=== PATIENT | female | born 1985 | race Caucasian/White ===

== ENCOUNTER → 2020-09-29 11:59 | Outpatient (BNVA) | payer OTHER, SELFPAY | PROVIDERS: Visit Provider Nurse Practitioner Family | DX: Z20.828 Contact with and (suspected) exposure to other viral communicable diseases (principal) | CPT/HCPCS: 87635 ==

== ENCOUNTER 2020-10-01 12:49 | Emergency (ER) | payer OTHER, SELFPAY ==
[2020-10-01 13:00] VITALS: BP 126/72; PULSE 117; RESP 18; TEMP 36.9; O2SAT 100; BMI 28.3
[2020-10-01 13:22] VITALS: O2SAT 100
--- NOTE | 2020-10-01 13:23 | W.ED.COVID ---
HPI - COVID General: Chief Complaint: COVID symptoms Stated Complaint: COVID + Time Seen by Provider: 10/01/20 12:58 Triage information: Has fever, cough or shortness of breath. Exposure to COVID + person last 14 days History of Present Illness: HPI Narrative: Patient is a 35-year-old female comes to the ED with Covid symptoms. Patient has had body aches, cough and shortness of breath started approximately 3 days ago. She she was Covid positive on September 29. She has been in self quarantine. She felt like her shortness of breath was getting worse today so she came to the ED to get checked out. Denies any fever, chills, nausea/vomiting, abdominal pain, chest pain, bladder or bowel symptoms. COVID 19 common symptoms: positive non-productive cough, dyspnea and body aches; negative fever(s), chills, productive cough, fatigue, headache(s), throat pain, nasal congestion, nausea, vomiting or diarrhea COVID 19 other sytmptoms: negative chest pain COVID Results: SARS-CoV-2 RNA (RT-PCR) Detected (NOT DETECTED) A 09/29/20 11:59 09/29/20 Review of Systems Const: Reports: body aches; Denies: fever(s), chills or fatigue Eyes: Denies: change in vision or eye discomfort ENMT: Denies: throat pain, odynophagia, nasal discharge or nasal congestion Card: Denies: chest pain, palpitations, edema, swelling of feet/ankles, dyspnea on exertion or orthopnea Resp: Reports: dyspnea and non-productive cough; Denies: productive cough GI: Denies: abdominal pain, nausea, vomiting, diarrhea, constipation or hematochezia : Denies: flank pain, dysuria or hematuria Musc: Denies: neck pain, back pain or extremity swelling Skin/Breast: Denies: rash or new lesions Neuro: Denies: headache(s), numbness in extremities or weakness in extremities Physical Exam Const: COMMON NORMALS: no acute distress, patient oriented x3 and alert GENERAL APPEARANCE: cooperative and comfortable HENMT: COMMON NORMALS: normocephalic HEAD & SCALP: normocephalic MOUTH: Normal oral and palatal mucosa present THROAT: posterior oropharynx normal and uvula midline Eye: COMMON NORMALS: Equal, round and reactive pupils present PUPIL: Yes Equal, round and reactive pupils present Neck/C-Spine: COMMON NORMALS: supple GENERAL: Yes normal visual inspection Resp: COMMON NORMALS: normal respiratory effort, No retractions, No use of accessory muscles and clear to auscultation bilaterally AUSCULTATION: clear to auscultation bilaterally Cardio: COMMON NORMALS: regular rate, regular rhythm, S1 normal heart sound present, S2 normal heart sound present, No gallops present (Cardio), No clicks present (Cardio), No murmurs present (Cardio) and Peripheral pulses 2+ throughout RATE: regular rate RHYTHM: regular rhythm HEART SOUNDS: S1 normal heart sound present and S2 normal heart sound present PERIPHERAL PULSES: Peripheral pulses 2+ throughout GI: COMMON NORMALS: Normal to inspection, nondistended, normoactive bowel sounds present, Soft to palpation, non-tender and no masses PALPATION: Yes Soft to palpation : COMMON NORMALS: Yes no CVA tenderness BLADDER/KIDNEY EXAM: Yes no CVA tenderness Back/Pelvis: COMMON NORMALS: no CVA tenderness Extremity: COMMON NORMALS: normal to inspection Neuro: COMMON NORMALS: patient oriented x3 and moves all extremities SENSORIUM/ORIENTATION: Yes alert Skin: GENERAL SKIN EXAM: dry skin Course Vital Signs: Vital signs: Vital Signs Temperature 98.4 F 10/01/20 13:00 Pulse Rate 78 10/01/20 15:53 Respiratory Rate 18 10/01/20 15:53 Blood Pressure 118/63 10/01/20 15:53 Pulse Oximetry 100 10/01/20 15:53 MDM - COVID MDM Narrative: Medical decision making narrative: Patient is a 35-year-old female who comes to the ED with Covid symptoms. Patient tested positive for COVID-19 on September 29. Denies any chest pain. Lungs are clear to auscultation bilaterally and patient appears in no acute respiratory distress. EKG showed sinus tachycardia with no ST segment elevation or depression seen, 107 bpm. Chest x-ray suggestive of some developing viral pneumonia and right lower lobe. Patient was sent home with a prescription for an albuterol inhaler, Z-Rojas and Medrol Dosepak. Return to ED precautions given. Patient understood and agreed with plan. Lab Data: Attestation: I reviewed the patient's lab results. Labs: Lab Results 10/01/20 10/01/20 10/01/20 Range/Units 13:41 13:41 13:41 WBC 9.5 (4.0-10.0) 10^3/ uL RBC 4.74 (4.1-5.3) 10^6/u L Hgb 13.2 (11.5-15.3) g/dL Hct 40.9 (37.0-47.0) % MCV 86.3 (81-99) fL MCH 27.8 L (28.0-34.0) pg MCHC 32.3 (30.0-36.0) g/dL RDW 13.5 (12.1-15.1) % Plt Count 208 (130-400) 10^3/c mm MPV 11.9 H (7.4-10.4) fL Neut % (Auto) 76.5 % Lymph % (Auto) 13.8 % Republic % (Auto) 7.6 % Eos % (Auto) 1.7 % Baso % (Auto) 0.2 % Neut # (Auto) 7.24 (1.8-7.7) 10^3/u L Lymph # (Auto) 1.3 (0.8-4.8) 10^3/u L Republic # (Auto) 0.7 (0.2-0.9) 10^3/u L Eos # (Auto) 0.2 (0.0-0.8) 10^3/u L Baso # (Auto) 0.0 (0.0-0.1) 10^3/u L Nucleated RBC % (a uto) 0 % Nucleated RBCs # 0.0 /100WBC Sodium 138 (136-145) mmol/L Potassium 3.6 (3.5-5.1) mmol/L Chloride 101 (98-107) mmol/L Carbon Dioxide 27 (22-29) mmol/L Anion Gap 13.6 (5-19) BUN 5 L (6-20) mg/dL Creatinine 0.6 (0.5-0.9) mg/dL GFR Calculation 112.5 (90-130) mL/min Glucose 148 H (65-115) mg/dL Calculated Osmolal ity 286 (285-295) mOsm/k g Calcium 9.3 (8.5-10.5) mg/dL Total Bilirubin 0.5 (0.15-1.2) mg/dL AST 20 (0-32) U/L ALT 12 (0-33) U/L Alkaline Phosphata se 50 (35-105) IU/L Total Protein 7.5 (6.6-8.7) g/dL Albumin 3.9 (3.5-5.2) g/dL Globulin 3.6 (1.3-4.6) g/dL HCG, Qual Negative (Negative) Imaging Data: CXR: Attestation: I personally reviewed and interpreted this imaging study as follows: My impression: Chest x-ray shows some groundglass appearance in right lower lung. Suggestive of viral pneumonia. EKG Data: EKG 1: Attestation: I personally reviewed and interpreted this EKG as follows: EKG interpretation date: 10/01/20 Interpretation: Patient sinus tachycardia, 107 bpm, no ST segment elevation or depression seen. COVID Results: SARS-CoV-2 RNA (RT-PCR) Detected (NOT DETECTED) A 09/29/20 11:59 09/29/20 Discharge Plan Discharge Patient Disposition: Home Clinical Impression: Pneumonia due to COVID-19 virus Condition: Stable Prescriptions: New azithromycin 250 mg tablet 250 mg PO DAILY 4 Days Qty: 4 RF: 0 albuterol sulfate 90 mcg/actuation HFA aerosol inhaler 2 inh inhalation Q6H PRN (Reason: shortness of breath or wheezing) Qty: 6.7 RF: 0 methylprednisolone 4 mg tablets,dose pack See Rx Instructions .ROUTE .COMPLEX Qty: 21 RF: 0 No Action No Known Home Medications RF: 0 Discharge Orders: Discharge ED (Routine); Ordered 10/01/20 Ordered By: Chuy Phillips Discharge Diet: Regular Discharge Activity: Increase activity as tolerated Patient Instructions: Viral Pneumonia (ED) Activity Restrictions/Additional Instructions: Follow-up with medical provider as directed in 7 to 10 days. Continue self quarantine as previously instructed. Take medications as prescribed. Return to the ER or your medical provider if condition worsens. Please read and understand discharge instructions. If any questions, please ask. Coding Level of Care Code ED [employer] Supervisor for Adelaida Fwd Exam Comprehensive
--- NOTE | 2020-10-01 13:24 | ECG_ITS ---
[facility] Test Date: 2020-10-01 Pat Name: Sultana Mckeon Department: Room: Gender: Female Remelter: : 1985 Requested By: Chuy Phillips Order Number: [id number] Abbott MD: Olena Cruz M.D. Measurements Intervals Amo Rate: 107 P: 33 NC: 155 QRS: 33 QRSD: 90 T: 18 QT: 326 QTc: 436 Interpretive Statements SINUS TACHYCARDIA ABNORMAL RHYTHM ECG No previous ECG available for comparison Electronically Signed On 10-02-2020 17:25:55 SAMPLING THEORY TEACHER by Olena Cruz M.D. [id number]
--- NOTE | 2020-10-01 13:24 | XRR_ITS ---
PROCEDURE INFORMATION: Exam: XR Chest, 1 View Exam date and time: 10/01/2020 1:31 PM Age: 35 years old Clinical indication: Shortness of breath; Additional info: SOB TECHNIQUE: Imaging protocol: XR of the chest Views: Frontal portable upright view of the chest. COMPARISON: No relevant prior studies available. FINDINGS: Lungs: Multifocal lateral right mid-lower lung zone and inferior parahilar pulmonary infiltrates. The pulmonary vasculature is normal. The left lung is clear. Pleural space: No pleural effusion. No pneumothorax. Heart/Mediastinum: The heart is normal in size and contour. Bones/joints: No acute abnormality identified. XR/XR chest 1V portable [id number] IMPRESSION: Multifocal right-sided pulmonary infiltrates. Pneumonitis is difficult to exclude. Clinical correlation is recommended.
[2020-10-01 13:45] VITALS: BP 116/72; PULSE 78; RESP 18; O2SAT 100
[2020-10-01 13:58] LABS: Basophils % 0.2 %; Eosinophils # 0.2 10^3/uL (0.0-0.8); Eosinophils % 1.7 %; Hematocrit 40.9 % (37.0-47.0); Hemoglobin 13.2 g/dL (11.5-15.3); Lymphocytes # 1.3 10^3/uL (0.8-4.8); Lymphocytes % 13.8 %; Mean Corpuscular HGB Conc 32.3 g/dL (30.0-36.0); Mean Corpuscular Hemoglobin 27.8 pg (28.0-34.0); Mean Corpuscular Volume 86.3 fL (81-99); Mean Platelet Volume 11.9 fL (7.4-10.4); Monocytes # 0.7 10^3/uL (0.2-0.9); Monocytes % 7.6 %; Neutrophils # 7.24 10^3/uL (1.8-7.7); Neutrophils % 76.5 %; Nucleated Red Blood Cells % 0 %; Platelet Count 208 10^3/cmm (130-400); Red Blood Count 4.74 10^6/uL (4.1-5.3); Red Cell Distribution Width 13.5 % (12.1-15.1); White Blood Count 9.5 10^3/uL (4.0-10.0)
[2020-10-01 14:15] VITALS: BP 122/65; PULSE 70; RESP 18; O2SAT 98
[2020-10-01] MEDS: azithromycin 250 mg Tablet 500 MG PO (14:39)
[2020-10-01 14:43] LABS: HCG, Serum Qual Negative (Negative)
[2020-10-01 14:51] LABS: Alanine Aminotransferase 12 U/L (0-33); Albumin Level 3.9 g/dL (3.5-5.2); Alkaline Phosphatase 50 IU/L (35-105); Anion Gap 13.6 (5-19); Aspartate Amino Transferase 20 U/L (0-32); Blood Urea Nitrogen 5 mg/dL (6-20); Calcium 9.3 mg/dL (8.5-10.5); Carbon Dioxide 27 mmol/L (22-29); Chloride 101 mmol/L (98-107); Globulin 3.6 g/dL (1.3-4.6); Glomerular Filtration Rate 112.5 mL/min (90-130); Glucose 148 mg/dL (65-115); Osmolality Calculated 286 mOsm/kg (285-295); Potassium 3.6 mmol/L (3.5-5.1); Sodium 138 mmol/L (136-145); Total Bilirubin 0.5 mg/dL (0.15-1.2); Total Protein 7.5 g/dL (6.6-8.7)
[2020-10-01 15:15] VITALS: BP 128/64; PULSE 74; RESP 18; O2SAT 98
[2020-10-01 15:53] VITALS: BP 118/63; PULSE 78; RESP 18; O2SAT 100
== END 2020-10-01 15:57 | disposition home or self-care (01) ==
PROVIDERS: Emergency Provider Physician Assistant
DX: U07.1 COVID-19 (principal); J12.82 Pneumonia due to coronavirus disease 2019
CPT/HCPCS: 12345; 71045; 80053; 84703; 85025; 93005; 96372; 99281; 99283; J2930; Q0144

== ENCOUNTER → 2021-09-06 08:48 | Outpatient (BNVA) | payer OTHER, SELFPAY | PROVIDERS: Visit Provider Physician Assistant | DX: M54.50 Low back pain, unspecified (principal); M47.897 Other spondylosis, lumbosacral region | CPT/HCPCS: 72110 ==

== ENCOUNTER 2021-09-17 06:00 | Outpatient (RCR) | payer OTHER, SELFPAY | END 2021-09-21 23:59 | disposition home or self-care (01) | LOC: SPT 06:00 | PROVIDERS: Referring Provider Physician Assistant; Visit Provider Physician Assistant | DX: M54.41 Lumbago with sciatica, right side (principal) | CPT/HCPCS: 97161 ==

== ENCOUNTER 2021-09-22 06:00 | Outpatient (RCR) | payer SELFPAY | END 2021-10-22 23:59 | disposition home or self-care (01) | LOC: SPT 06:00 | PROVIDERS: Referring Provider Physician Assistant; Visit Provider Physician Assistant | DX: M54.31 Sciatica, right side (principal) | CPT/HCPCS: 97032; 97110 ==

== ENCOUNTER 2021-10-31 15:08 | Outpatient (CLI) | payer OTHER, SELFPAY ==
--- NOTE | 2021-10-31 15:15 | MR_ITS ---
WS: [id number] MRI LUMBAR SPINE NONCONTRAST TECHNIQUE: Sagittal T1, T2 and STIR imaging. Axial T1 and T2 imaging. CLINICAL INFORMATION: M54.50 - Low back pain, unspecified COMPARISON: None. FINDINGS: Mild lumbar curve. No acute compression. Disc desiccation worse L4-L5 with a RIGHT pericentral protru adam with migration into the subarticular recess. L1-L2: Normal. L2-L3: Normal. L3-L4: No significant disc bulging. Mild facet arthropathy. Spinal canal and foramen are patent. L4-L5: RIGHT pericentral disc protrusion with migration into the RIGHT subarticular recess. Impingeme nt traversing right L5 nerve root. Mild central canal stenosis. Foramen are patent. Mild facet arthro irasema. L5-S1: Mild disc bulging eccentric to the LEFT. Slight effacement of ventral thecal sac. Mild LEFT an d no significant RIGHT foraminal narrowing. Mild facet arthropathy. Tiny shallow central protrusion in the cervical spine gum maker imaging at C6-C7 without significant cent ral canal stenosis. Visualized pelvic bony structures: Normal. Paravertebral soft tissues: Normal. MR/MR lumbar spine wo con* [id number] IMPRESSION: 1. Disc desiccation L4-L5 with a RIGHT pericentral disc protrusion with slight caudal migration. This impinges the traversing RIGHT L5 nerve root in the suba rticular recess. Correlation for RIGHT L5 nerve root symptoms. Mild central can al stenosis at this level. Disc material measures approximately 4.5 x 5.8 mm AP by transverse. 2. Mild annular bulging L5-S1 with slight effacement of ventral thecal sac. Mi ld LEFT foraminal narrowing. 3. Mild facet arthropathy L3-L5. 4. Small central protrusion cervical spinal gum maker imaging at C6-C7 without sig nificant central canal stenosis.
== END 2021-10-31 15:09 | disposition home or self-care (01) ==
PROVIDERS: Visit Provider Physician Assistant
DX: M79.604 Pain in right leg (principal); M50.223 Other cervical disc displacement at C6-C7 level; M47.816 Spondylosis without myelopathy or radiculopathy, lumbar region; M51.27 Other intervertebral disc displacement, lumbosacral region
CPT/HCPCS: 72148

== ENCOUNTER → 2021-11-12 15:17 | Outpatient (BNVA) | payer OTHER, SELFPAY | PROVIDERS: Visit Provider Orthopaedic Surgery | DX: Z20.822 Contact with and (suspected) exposure to COVID-19 (principal) | CPT/HCPCS: 87635 ==

== ENCOUNTER 2021-11-16 07:40 | Day surgery (SDC) | payer OTHER, SELFPAY ==
[2021-11-15 15:03] VITALS: BMI 29.2
[2021-11-16] VITALS (10 sets, daily range): BP systolic 108–141; BP diastolic 60–81; PULSE 65–97; RESP 15–20; TEMP 36.1–36.6; O2SAT 95–100
--- NOTE | 2021-11-16 | SCC_ITS ---
Procedure done: 1. L4/5 laminectomp with partial facetectomy and discectomy 7.7 seconds of fluoroscopic guidance, for a cumulative dose of 2.01 mGy, was provided to Dr. Gurrola by the radiology department. C-arm images of the lumbar spine were saved for the patient's permanent record. [facility]
--- NOTE | 2021-11-16 | XR_ITS ---
WS: [id number] C-ARM RADIOGRAPHS LUMBAR SPINE; 2 IMAGES HISTORY: lumbar stenosis with neurogenic claudication COMPARISON: 10/31/2021 MRI. Intraoperative spine decompression surgery at L4-5 level. There is a marker at the L4-5 level. XR/XR lumbar spine 1V [id number] IMPRESSION: Intraoperative marker at the L4-5 level.
[2021-11-16] MEDS: sodium chloride 0.9% 1,000 ML 30 ML IV (07:45)
--- NOTE | 2021-11-16 08:34 | P.ANESASSM_ITS ---
Pre-Anesthetic Assessment Height/Weight: Height 1.63 m Weight 77.111 kg Preop Diagnosis: HNP L4-5 Operation Date: 11/16/21 09:40 Proposed Procedures s Discectomy L4/5(Right) - Roberto Gurrola DO p Lumbar Spine Decompression 98124/m48.062(Right) - Roberto Gurrola DO Familial anesthetic complications: None Was Beta Jim taken within 24 hours: N/A Was Clonidine taken within 24 hours: N/A Last intake: Intake Last Liquid Date 11/15/21 Last Liquid Time 21:00 Last Solid Date 11/15/21 Last Solid Time 21:00 Social No alcohol and No tobacco Exam alert, oriented x 3, clear to auscultation bilaterally and regular rate & rhythm Airway Mallampati: Class I Dentition: full Anesthetic Plan ASA status: 1 Anesthesia: General Risk of > 500 ml blood loss (7ml/kg in children): No Medications/Allergies Home Medications Medication Instructions Recorded Confirmed Last Taken Type No Known Home Medications 11/06/21 11/06/21 Unknown History Allergies Allergy/AdvReac Type Severity Reaction Status Date / Time No Known Allergies Allergy Verified 11/16/21 08:16 [facility] Anesthesia Social History Smoking and tobacco status: never smoked Female Reproductive History Date of last menstrual period: 11/10/21 Data Anesthesia Cardiac Studies: No Data to Display
--- NOTE | 2021-11-16 08:54 | W.PM.OPSUD ---
Surgery/Procedure H&P Update DATE OF PROCEDURE: November 16, 2021 DATE H&P PERFORMED: 11/06/21 PREOP DIAGNOSIS: HNP L4-5 PLANNED PROCEDURE: Operation Date: 11/16/21 09:40 Proposed Procedures s Discectomy L4/5(Right) - Roberto Gurrola DO p Lumbar Spine Decompression 86508/m48.062(Right) - Roberto Gurrola DO
[2021-11-16 09:36] LABS: OR HCG Qualitative Urine Negative (Negative)
[2021-11-16] MEDS: fentaNYL 50 mcg/mL INJ 2mL IVP (09:49)
--- NOTE | 2021-11-16 10:09 | PC.NURSE ---
pt was very difficult IV stick. iv obtained by Al Shepherd RN STAFF after attempts by nurses and Dr. Amaya
--- NOTE | 2021-11-16 11:21 | PM.OP ---
Operative Report Date of procedure: November 16, 2021 Pre-op diagnosis: Preop Diagnosis HNP L4-5 with radiculopathy Post-op diagnosis: same Procedure done: 1. L4/5 laminectomp with partial facetectomy and discectomy Surgeon: Roberto Gurrola Shank Scourer: Christopher Daniel Shank Scourer: The program support assistant, Christopher Daniel, LAYLA was needed for his expertise under the microscope. He was important and necessary throughout the procedure to complete in a safe and timely manner. He assisted with patient positioning prepping and draping tissue retraction suctioning of the operative field protection of the dural sac and tissue closure Estimated blood loss (mL): 50 Procedure: Patient is brought to the operative suite. After undergoing anesthesia they are placed in the prone position. All areas of impingement are well padded. Patient is then prepped and draped in the normal sterile fashion. A skin incision is made over the L4/5 level. This is confirmed under c-arm guidance. A series of dilators are passed and the tubular retractor is docked on the L4 lamina. A bovie is used to clear the soft tissue off the lamina and the L 4/5 facet joint. A high speed rayna is then used to perform the laminectomy and take down the medial aspect of the L 4/5 facet joint. A kerrison rongeure was then used to take down the remaining lamina and smooth the edge of the laminectomy up to the point where the ligamentum flavum attaches. Attention was then brought to the medial aspect of the facet joint. The remaining medial aspect of the superior and inferior aspect of the facet joint were taken down with the kerrison from the pedicle of L4 to L 5. The facet joint had significant hypertrophy. Attention was then brought to the Ligamentum Flavum. The ligament was taken down from the lamina of L4 to L5 and out medially to the remaining facet joint. The ligament was thick. The dura was then exposed. The dura was in good repair. The L5 nerve root was bruised up. The nerve was retracted disc was identified micropituitary was used to remove the disc. The disc space was irrigated and micropituitary was used to remove any free fragments. The L4 nerve was then traced with a curette out the L4/5 foramen and found to be adequately decompressed. The L5 nerve was traced with a curette around the L5 pedicle. The lateral recess was opened with a kerrison helping to further decompress the L5 nerve. Wound is then irrigated copiously with saline and surgiflo is used to stop any bleeding. The tubular retractor is removed and the wound is closed with vicryl and monocryl suture. Glue is then used to protect the wound. A sterile dressing is then placed. Patient was then placed in the supine position and transferred to the PACU in stable condition.
--- NOTE | 2021-11-16 11:28 | SUR.PHASEI ---
patient into pacu with oral airway in place on room air, patient spits out as soon as arrival to pacu. patient asleep. no pain per faces.
--- NOTE | 2021-11-16 11:33 | SUR.PHASEI ---
patient awake but drowsy, taking ice chips. states no pain.
[2021-11-16] MEDS: HYDROcodone-acetaminophen 5-325 mg Tablet 1 TAB PO (12:05)
--- NOTE | 2021-11-16 12:39 | ANE.PACU2 ---
Inpatient post-anesthesia follow up: Airway intact: Yes Vital signs: Temperature 97.8 F Pulse Rate 65 Respiratory Rate 18 Blood Pressure 131/73 Pulse Oximetry 98 Oxygen Delivery Me thod Room Air Oxygen Flow Rate Fraction of Inspir ed Oxygen Hydration adequate: Yes Nausea and vomiting: No Pain level: 2 Mental status: Baseline
[2021-11-16] MEDS: ondansetron 2 mg/ML SDV 2 mL 4 MG IVP (12:50)
== END 2021-11-16 13:15 | disposition home or self-care (01) ==
PROVIDERS: Anesthesiology; Visit Provider Orthopaedic Surgery
PROC: (CPT 63047; principal; 2021-11-16 09:30)
PROC: (CPT 63005; 2021-11-16 09:30)
DX: M54.16 Radiculopathy, lumbar region (principal)
CPT/HCPCS: 63047; 72020; 76000; 81025; 84703; 96374; J0690; J1100; J2250; J2405; J2704; J2710; J3010; J3490; J7030

== ENCOUNTER → 2022-01-21 11:47 | Outpatient (BNVA) | payer OTHER, SELFPAY | PROVIDERS: Visit Provider Registered Nurse Neonatal Intensive Care | DX: J02.9 Acute pharyngitis, unspecified (principal) | CPT/HCPCS: 87880 ==